=== PATIENT | female | born 1955 | race Caucasian/White ===

== ENCOUNTER 2017-02-09 12:46 | Emergency (ER) | payer BC ==
[2017-02-09] MEDS ORDERED: ONDANSETRON ODT 4 MG TAB.RAPDIS ONE (13:45)
--- NOTE | 2017-02-09 13:54 | ER NURSING DOCUMENTATION ---
Nurse's Notes [facility] Name:Heidi Morrow Age:62 yrs Sex:Female :1955 Arrival Date:02/09/2017 Time:12:46 Bed4 Private MD: Diagnosis:Diarrhea Presentation: 02/09 13:00 Method Of Arrival: Private Vehicle ct1 13:00 Presenting complaint: Patient states: abdominal cramping and diarrhea this morning. Pt. 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 Had some nausea and vomiting last night but denies these complaints today. Transition of care: Home. Notified ED Physician of patient's arrival and CC Clemente Chinchilla notified. 13:01 Acuity: ARTHUR 3 ct1 Triage Assessment: 13:05 General: Appears in no apparent distress, well developed, well nourished, well groomed, [facility] [place] Behavior is cooperative, pleasant. Pain: Complains of pain in abdomen Quality of pain is described as crampy. Historical: - Allergies: No known drug Allergies; - PSHx: umbilical hernia surg 6 wks ago; - Immunization history: Pneumococcal vaccine is not up to date, Flu Vaccine None. - Ebola Screening: : Patient negative for fever greater than or equal to 101.5 degrees Fahrenheit, and additional compatible Ebola Virus Disease symptoms. Patient denies exposure to infectious person. Patient denies travel to an Ebola-affected area in the 21 days before illness onset. No symptoms or risks identified at this time. . - Social history: Smoking status: Patient states was never smoker of tobacco. Patient uses alcohol but reports only rare drinking. Patient/guardian denies using street drugs, IV drugs, marijuana. Screenin:11 Infectious Disease Risk None. Abuse screen: Denies threats or abuse. Nutritional ct1 screening: No deficits noted. Vital Signs: 13:09 BP 123 / 78; Pulse 73; Resp 18; Temp 98.0; Pulse Ox 95% on R/A; ct1 ED Course: 12:50 Patient arrived in ED. jl 12:51 Jairo Cornejo MD is Attending Physician. jl 13:00 Valuables Remains with patient. ct1 13:01 Lilo Pritchard, GLEN is Primary Nurse. [facility] [place] 13:01 Triage completed. ct1 13:10 Notified ED Physician of patient's arrival and chief complaint. Dr. Cornejo notified. Arm sc1 band placed on Bed in low position Call Light in Reach Gowned HOB Elevated. 13:27 Jairo Cornejo MD is Referral Physician. dada Administered Medications: 13:29 Drug: Zofran 4 mg; Route: PO; sc1 13:52 Follow up: Response: No adverse reaction sc1 Outcome: 13: Discharge ordered by . dada 13:53 Patient left the ED. sc1 13:53 Discharged to Pt. decided to bring stool sample back from home. Pt. was given ct1 supplies for this. 13:53 Condition: stable 13:53 Discharge instructions given to patient, Instructed on discharge instructions, Demonstrated understanding of instructions. 02/10 10:56 Discharge F/U Call: Unable to reach: no answer lp 11:16 Discharge F/U Call: Spoke with: patient. What is the one thing you feel we could do lp to improve? Patient's answer: No diarrhea today Signatures: Lilo Pritchard RN RN ct1 Riana Paula RN RN lp Meyer, John, MD MD jm Lietz, Jeff jl
--- NOTE | 2017-02-09 13:54 | ER PHYSICIAN DOCUMENTATION ---
Physician Documentation [facility] Name:Heidi Morrow Age:62 yrs Sex:Female :1955 Arrival Date:02/09/2017 Time:12:46 Bed4 Private MD: Jairo Mota Disposition: 02/09/17 13:27 Discharged to Home/Self Care. Impression: Diarrhea. - Condition is Undetermined. - Discharge Instructions: DIARRHEA, Unk Cause (Adult) Report Pendg. - Prescriptions for Zofran 4 mg Oral Tablet - take 1-2 tablet by ORAL route every 4-6 hours As needed; 10 tablet. - Medical Reconciliation form form. - Follow up: Jairo Cornejo MD; When: Tomorrow; Reason: for C-diff results. . - Problem is new. - Symptoms are unchanged. HPI: 02/09 15:40 This 62 yrs old Female presents to ER via Private Vehicle with complaints of jm Diarrhea - C-DIFF. 15:40 The patient presents to the emergency department with nausea, with vomiting, without jm any complaints of abdominal pain. Onset: The symptom(s)/episode began/occurred yesterday, and became worse today. Possible causes: antibiotics. Associated signs and symptoms: Pertinent positives: vomiting. The patient has experienced a previous episode, approximately 3 years ago, and the symptoms today are exactly the same, when pt had C-diff, so she is worried about it again. . Historical: - Allergies: No known drug Allergies; - PSHx: umbilical hernia surg 6 wks ago; - Immunization history: Pneumococcal vaccine is not up to date, Flu Vaccine None. - Ebola Screening: : Patient negative for fever greater than or equal to 101.5 degrees Fahrenheit, and additional compatible Ebola Virus Disease symptoms. Patient denies exposure to infectious person. Patient denies travel to an Ebola-affected area in the 21 days before illness onset. No symptoms or risks identified at this time. . - Social history: Smoking status: Patient states was never smoker of tobacco. Patient uses alcohol but reports only rare drinking. Patient/guardian denies using street drugs, IV drugs, marijuana. ROS: 15:40 Constitutional: Positive for fatigue, malaise, Negative for fever. jm 15:40 Abdomen/GI: Positive for nausea, vomiting, diarrhea, Negative for abdominal pain. 15:40 All other systems are negative. Exam: 15:40 Constitutional: The patient appears alert, awake, comfortable. 15:40 Cardiovascular: Rate: bradycardic, Rhythm: regular. 15:40 Abdomen/GI: Bowel sounds: normal, Palpation: abdomen is soft and non-tender. Vital Signs: 13:09 BP 123 / 78; Pulse 73; Resp 18; Temp 98.0; Pulse Ox 95% on R/A; sc1 MDM: 13:00 Differential diagnosis: viral gastroenteritis, gastroenteritis, C-diff. Data reviewed: dada vital signs, nurses notes, and as a result, I will discharge patient. Counseling: I had a detailed discussion with the patient and/or guardian regarding: the historical points, exam findings, and any diagnostic results supporting the discharge/admit diagnosis, the need for outpatient follow up, with the patient's primary care provider. ED course: Pt gave us sample and we will run C-diff and cll pt w results. If positive, I will call in PO [facility]. . 13:16 Patient medically screened. 02/10 17:58 ED course: Pt was relieved to know that her C-diff PCR was negative. . 02/09 17:12 Order name: FECAL LEUKS (LACTOFERRIN) EDFL 02/09 18:21 Order name: C DIFFICILE BY PCR EDFL 02/10 07:26 Order name: STOOL CULTURE PANEL EDFL Dispensed Medications: 02/09 13:29 Drug: Zofran 4 mg; Route: PO; sc1 13:52 Follow up: Response: No adverse reaction sc1 Signatures: Llio Pritchard, GLEN RN sc1 Jairo Cornejo MD MD
== END 2017-02-09 13:54 | disposition home or self-care (01) ==
LOC: ER 12:46
DX: R19.7 Diarrhea, unspecified (principal); R11.2 Nausea with vomiting, unspecified; R53.83 Other fatigue; R53.81 Other malaise
CPT/HCPCS: 83630; 87188; 87493; 87899; 99283